=== PATIENT | male | born 1995 | race Caucasian/White ===

== ENCOUNTER 2016-03-23 20:42 | Emergency (ER) | payer OTHER ==
[2016-03-23 20:52] VITALS: RESP 16
[2016-03-23] MEDS ORDERED: ONDANSETRON 4 MG/2 ML VIAL IVP ONE (21:06)
[2016-03-23] MEDS ORDERED: NS 1,000 ML IV ONE (21:06)
[2016-03-23 21:10] LABS: % IMMATURE GRANULYOCYTES 0.2 % (0.0-1.1); ABSOLUTE IMMATURE GRANULOCYTES 0.02 10^3/uL (0.00-0.10); ADD DIFF? NO; ADD MORPH? NO; ADD SCAN? NO; ATYPICAL LYMPHOCYTE FLAG 0 (0-99); FRAGMENT RBC FLAG 0 (0-99); HEMATOCRIT 48.9 % (40.0-51.0); HEMOGLOBIN 17.3 g/dL (13.7-17.5); LEFT SHIFT FLG 0 (0-99); LIPEMIA HEMOLYSIS FLAG 90 (0-99); MEAN CELL HEMOGLOBIN 31.7 pg (27.9-34.1); MEAN CELL HEMOGLOBIN CONCENTR. 35.4 g/dL (32.4-36.7); MEAN CELL VOLUME 89.6 fL (81.5-99.8); MEAN PLATELET VOLUME 9.8 fL (8.7-11.7); PLATELET CLUMPS FLAG 0 (0-99); PLATELET COUNT 256 10^3/uL (150-400); RED BLOOD CELL COUNT 5.46 10^6/uL (4.40-6.38); RED CELL DISTRIBUTION WIDTH 12.1 % (11.5-15.2)
--- NOTE | 2016-03-23 21:10 | EDPHY ---
HPI/HX/ROS/PE/MDM Narrative: CHIEF COMPLAINT: Vomiting HPI: The patient is a 20-year-old male with no significant past medical history. At approximately 2 o'clock last night, the patient developed severe nonbloody vomiting and diarrhea. He complains of diffuse abdominal cramps. He denies trauma. He states that his skin felt very hot and he did not take his temperature with a thermometer. He denies recent antibiotics, out of country travel, or unusual foods or sick contacts. REVIEW OF SYSTEMS: Aside from elements discussed in the HPI, a comprehensive 10-point review of systems was reviewed and is negative. PMH: No history of abdominal surgery. SOCIAL HISTORY: Single. Student. Denies recent drug abuse. PHYSICAL EXAM: General:Patient is alert, in no acute distress. ENT:Eyes are normal to inspection. ENT inspection normal. Neck: Normal inspection. Full range of motion. Respiratory:No respiratory distress. Breath sounds normal bilaterally. Cardiovascular: Regular rate and rhythm. Strong peripheral pulses. Normal cap refill. Abdomen:The abdomen is nontender to palpation. There are no peritoneal signs. There are normal bowel sounds. Back: Normal to inspection. No tenderness to palpation. Skin: Normal color. No rash. Warm and dry. Extremities: Normal appearance. Full range of motion. Neuro: Oriented x3. Normal motor function. Normal sensory function. ED Course: The patient was treated with IV fluid and Zofran. On re-evaluation at 11:20 p.m., he is remarkably better. He is tolerating fluids by mouth without difficulty. He is hungry. His vital signs are normal. I offered him further observation in the emergency department but he would like to go home. We discussed strict return precautions. There are multiple patients in the ER of the similar age and gender all with the same symptoms, so I suspect this likely represents a viral gastroenteritis. MDM: Patient's abdomen is benign on re-evaluation. His lab results are not consistent with sepsis or renal insufficiency. There is no evidence of appendicitis, bowel obstruction, bowel perforation. - Data Points Laboratory Results: Laboratory Results 03/23/16 21:03 03/23/16 21:03 03/23/16 21:03 WBC 9.78 H 10^3/uL (3.80-9.50) RBC 5.46 10^6/uL (4.40-6.38) Hgb 17.3 g/dL (13.7-17.5) Hct 48.9 % (40.0-51.0) MCV 89.6 fL (81.5-99.8) MCH 31.7 pg (27.9-34.1) MCHC 35.4 g/dL (32.4-36.7) RDW 12.1 % (11.5-15.2) Plt Count 256 10^3/uL (150-400) MPV 9.8 fL (8.7-11.7) Neut % (Auto) 83.0 H % (39.3-74.2) Lymph % (Auto) 8.0 L % (15.0-45.0) [place] % (Auto) 8.5 % (4.5-13.0) Eos % (Auto) 0.1 L % (0.6-7.6) Baso % (Auto) 0.2 L % (0.3-1.7) Nucleat RBC Rel Count 0.0 % (0.0-0.2) Absolute Neuts (auto) 8.12 H 10^3/uL (1.70-6.50) Absolute Lymphs (auto) 0.78 L 10^3/uL (1.00-3.00) Absolute Monos (auto) 0.83 H 10^3/uL (0.30-0.80) Absolute Eos (auto) 0.01 L 10^3/uL (0.03-0.40) Absolute Basos (auto) 0.02 10^3/uL (0.02-0.10) Absolute Nucleated RBC 0.00 10^3/uL (0-0.01) Immature Gran % 0.2 % (0.0-1.1) Immature Gran # 0.02 10^3/uL (0.00-0.10) Sodium 138 mEq/L (134-144) Potassium 3.6 mEq/L (3.5-5.2) Chloride 102 mEq/L (97-110) Carbon Dioxide 23 mEq/l (22-31) Anion Gap 13 mEq/L (8-16) BUN 15 mg/dL (7-23) Creatinine 1.0 mg/dL (0.7-1.3) Estimated GFR > 60 Glucose 101 H mg/dL (70-100) Calcium 9.6 mg/dL (8.5-10.4) Lipase 42.0 IU/L (23-300) Medications Given: Discontinued Medications Sodium Chloride (Ns) 1,000 mls @ 0 mls/hr IV ONCE ONE PRN Reason: Wide Open Stop: 03/23/16 21:07 Last Admin: 03/23/16 21:17 Dose: 1,000 mls Ondansetron HCl (Zofran) 4 mg IVP EDNOW ONE Stop: 03/23/16 21:07 Last Admin: 03/23/16 21:18 Dose: 4 mg General Time Seen by Provider: 03/23/16 21:02 Initial Vital Signs: Initial Vital Signs Temperature (C) 37.1 C 03/23/16 20:50 Heart Rate 101 H 03/23/16 20:50 Respiratory Rate 16 03/23/16 20:50 Blood Pressure 116/66 03/23/16 20:50 O2 Sat (%) 97 03/23/16 20:50 O2 Delivery Mode Room Air Allergies/Adverse Reactions: No Known Allergies Allergy (Unverified 03/23/16 20:52) Home Medications: Medication Instructions Recorded Ondansetron Odt [Zofran Odt] 4 mg PO Q4PRN PRN #8 tab 03/23/16 Departure - Departure Disposition: Home, Routine, Self-Care Clinical Impression: Gastroenteritis Condition: Good Instructions: Gastroenteritis (ED) Additional Instructions: Follow-up with your primary doctor within 72 hours. Return to the Emergency Department for worsening pain, fever, severe vomiting, change in character or severity of pain or other worsening of condition. Referrals: [place],. [Primary Care Provider] - As per Instructions Prescriptions: Ondansetron Odt [Zofran Odt] 4 mg PO Q4PRN PRN #8 tab PRN Reason: Nausea
[2016-03-23 21:34] LABS: ANION GAP 13 mEq/L (8-16); CALCIUM 9.6 mg/dL (8.5-10.4); CARBON DIOXIDE 23 mEq/l (22-31); CHLORIDE 102 mEq/L (97-110); GLOMERULAR FILTRATION RATE > 60; GLUCOSE 101 mg/dL (70-100); POTASSIUM 3.6 mEq/L (3.5-5.2); SODIUM 138 mEq/L (134-144)
[2016-03-23 23:19] VITALS: BP 113/55; PULSE 103; TEMP 99.9; O2SAT 93
[2016-03-23] MEDS ORDERED: ONDANSETRON 4MG PREPACK#2 BTL TAKEHOME ONE (23:24)
== END 2016-03-23 23:40 | disposition home or self-care (01) ==
DX: K52.9 Noninfective gastroenteritis and colitis, unspecified (principal)
CPT/HCPCS: 96374; J2405